=== PATIENT | female | born 1975 | race Caucasian/White ===

== ENCOUNTER 2018-06-25 05:56 | Observation (INO) | payer OTHER ==
--- NOTE | 2018-06-24 18:06 | Diagnostic Imaging Report ---
EXAMINATION: CHEST 2 VIEWS INDICATION: Pre admit. COMPARISON: None FINDINGS: Imaged flipped left to right. TUBES and LINES: None. LUNGS: Lungs are well inflated. Lungs are clear. There is no evidence of pneumonia or pulmonary edema. PLEURA: No pleural effusion or pneumothorax. HEART AND MEDIASTINUM: The cardiomediastinal silhouette is unremarkable. BONES AND SOFT TISSUES: No acute osseous lesion. Soft tissues are unremarkable. UPPER ABDOMEN: No free air under the diaphragm. IMPRESSION: No acute thoracic abnormality. Signed by: Dr. Ray Cordova M.D. on 06/24/2018 6:02 PM
[2018-06-24 18:40] LABS: BASOPHILS % 0.5 % (0.0-1.0); EOSINOPHILS # (AUTO) 0.3 (0.0-0.4); EOSINOPHILS % 3.4 % (0.0-6.0); HEMATOCRIT 38.4 % (34.2-44.1); HEMOGLOBIN 12.8 g/dL (12.0-16.0); LYMPHOCYTES # (AUTO) 2.3 (1.0-3.2); LYMPHOCYTES % 25.4 % (18.0-39.1); MEAN CORPUSCULAR HEMOGLOBIN 29.1 pg (28-32); MEAN CORPUSCULAR HGB CONC 33.3 g/dL (31-35); MEAN CORPUSCULAR VOLUME 87.3 fL (81-99); MONOCYTES # (AUTO) 0.5 (0.2-0.8); MONOCYTES % 5.6 % (4.4-11.3); NEUTROPHILS # (AUTO) 5.7 (2.1-6.9); NEUTROPHILS % 64.6 % (38.7-80.0); PLATELET COUNT 399 x10e3/uL (140-360); RED CELL DISTRIBUTION WIDTH 15.5 % (11.7-14.4)
[2018-06-24 18:43] LABS: BILIRUBIN,URINE NEGATIVE (NEGATIVE); CLARITY,URINE HAZY (CLEAR); COLOR,URINE YELLOW (YELLOW); KETONES,URINE NEGATIVE (NEGATIVE); LEUKOCYTE ESTERASE ,URINE 1+ (NEGATIVE); NITRITE,URINE NEGATIVE (NEGATIVE); PROTEIN,URINE DIPSTICK NEGATIVE (NEGATIVE); URINE UROBILINOGEN 0.2 mg/dL (0.2 - 1)
[2018-06-24 19:27] LABS: HIV 1&2 AB SCREEN NON-REACTIVE (NONREACTIVE)
[~2018-06-25] VITALS: Ht 160 cm; Wt 92.8 kg
[~2018-06-25 05:56] MED LIST: AMITRIPTYLINE H25 MG PO; DAILY VALUE1 EACH PO; DEXILANT60 MG PO; IRON PO; LISINOPRIL-HCT1 EACH PO; MAGNESIUM OXID400 MG PO; MELOXICAM7.5 MG PO; METOPROLOL SUCC50 MG PO; NASONEX17 GM; POTASSIUM PO; PRO AIR INH; SINGULAIR10 MG PO; SUMATRIPTAN SUC25 MG PO; SYMBICORT 80-10.2 GM INH; TIZANIDINE HCL4 MG PO; VALTREX500 MG PO; VIT D PO
--- OUTSIDE RECORDS SUMMARY | 2018-06-25 06:02 | XMS REPORT ---
Author Author Jodie Salinas Organization [employer] Address Unknown Phone Unavailable Care Team Providers Care Inhalation Therapy Aides Teacher Name Role Phone Jodie Salinas Unavailable Allergies, Adverse Reactions, Alerts Substance Reaction Event Type seasonal Info Not Available Non Drug Allergy fish Info Not Available Non Drug Allergy Encounters Encounter Location Date New patient here for blood pressure [facility] October 15, 2015 Problems Problem Type Condition ICD-9 Code Onset Dates Condition Status Assessment Anxiety F41.9 Active Problem Palpitations R00.2 Active Assessment Hypertension I10 Active Problem Anxiety F41.9 Active Problem Environmental allergies Z91.09 Active Problem Hypertension I10 Active Problem Asthma J45.909 Active Problem Tachycardia R00.0 Active Problem GERD (gastroesophageal reflux disease) K21.9 Active Problem Fatty liver K76.0 Active Assessment Asthma J45.909 Active Assessment Fatty liver K76.0 Active Assessment Palpitations R00.2 Active Assessment GERD (gastroesophageal reflux disease) K21.9 Active Assessment Tachycardia R00.0 Active Assessment Environmental allergies Z91.09 Active Medications Medication Code System Code Instructions Start Date End Date Status Dosage ProAir HFA [facility] [address]-48 108 (90 Base) MCG/ACT Inhalation every 4 hrs Active 2 puffs as needed Zomig [facility] [address]-07 Active Unknown Dyazide [facility] [address]-81 75 mg Orally Once a day Active 1 capsule in the morning Nexium [facility] [address]-30 40 MG Orally Once a day Active 1 capsule Paroxetine HCl [facility] [address]-34 10 mg Orally Once a day October 15, 2015 Active 1 tablet in the morning Singulair [facility] [address]-92 10 MG Orally Once a day Active 1 tablet in the evening Propranolol HCl [facility] [address]-52 10 mg Orally Twice a day October 15, 2015 Active 1 tablet Social History Social History Element Qualifiers Date Reported Tobacco Use: . Are you a: never smoker October 15, 2015 Use of recreational / street drugs? . Answer: No October 15, 2015 Do you have pets? . Status: No October 15, 2015 Caffeine intake? . Status: Yes, What type: Coffee, Tea, How often? Daily October 15, 2015 Do you exercise? . Answer: No October 15, 2015 Do you drink alcohol? . Status: Yes, Type: Wine, How often? Once per month October 15, 2015 Family history Qualifier Description Comment Date Reported Maternal Grandmother Comment not available October 15, 2015 Paternal Grandmother Comment not available October 15, 2015 Siblings Comment not available October 15, 2015 Maternal Grandfather Comment not available October 15, 2015 Children Comment not available October 15, 2015 Father alive cholesterol, dementia October 15, 2015 Paternal Grandfather Comment not available October 15, 2015 Mother Comment not available October 15, 2015 Other: Comment not available October 15, 2015 Vital Signs Date/Time: October 15, 2015 Weight 194.7 lbs Height 63 in Temperature 98.47 F Cardiac Monitoring Heart Rate 114 /min Blood Pressure Diastolic 96 mm Hg Blood Pressure Systolic 140 mm Hg Summary Purpose [employer] Submission
--- OUTSIDE RECORDS SUMMARY | 2018-06-25 06:02 | XMS REPORT ---
Author Author Jodie Salinas Organization [employer] Address Unknown Phone Unavailable Care Team Providers Care Health Safety And Environment Manager Name Role Phone Jodie Salinas Unavailable Encounters Encounter Location Date New patient here for blood pressure [facility] October 15, 2015 Patient here for a follow up [facility] Apr 24, 2016 std lab order [facility] May 26, 2016 Problems Problem Type Condition ICD-9 Code Onset Dates Condition Status Problem Palpitations R00.2 Active Problem Asthma J45.909 Active Problem Tachycardia R00.0 Active Assessment Concern about STD in female without diagnosis Z71.1 Active Problem Herpes labialis B00.1 Active Problem Hypertension I10 Active Problem Insomnia G47.00 Active Problem GERD (gastroesophageal reflux disease) K21.9 Active Problem Fatty liver K76.0 Active Problem Anxiety F41.9 Active Problem Environmental allergies Z91.09 Active Social History Social History Element Qualifiers Date Reported Tobacco Use: . Are you a: never smoker May 10, 2016 Use of recreational / street drugs? . Answer: No May 10, 2016 Do you have pets? . Status: No May 10, 2016 Caffeine intake? . Status: Yes, What type: Coffee, Tea, How often? Daily May 10, 2016 Do you exercise? . Answer: No May 10, 2016 Do you drink alcohol? . Status: Yes, Type: Wine, How often? Once per month May 10, 2016 Summary Purpose [employer] Submission
--- OUTSIDE RECORDS SUMMARY | 2018-06-25 06:02 | XMS REPORT ---
Author Author Jodie Salinas [facility] [employer] Address Unknown Phone Unavailable Care Team Providers Care Semiconductor Processing Technician Name Role Phone Jodie Salinas Unavailable Allergies, Adverse Reactions, Alerts Substance Reaction Event Type seasonal Info Not Available Non Drug Allergy fish Info Not Available Non Drug Allergy Encounters Encounter Location Date New patient here for blood pressure [facility] October 15, 2015 Patient here for a follow up [facility] Apr 24, 2016 Problems Problem Type Condition ICD-9 Code Onset Dates Condition Status Problem Palpitations R00.2 Active Problem Asthma J45.909 Active Problem Tachycardia R00.0 Active Problem Herpes labialis B00.1 Active Problem Hypertension I10 Active Problem Insomnia G47.00 Active Problem GERD (gastroesophageal reflux disease) K21.9 Active Problem Fatty liver K76.0 Active Problem Anxiety F41.9 Active Problem Environmental allergies Z91.09 Active Assessment Herpes labialis B00.1 Active Assessment Insomnia G47.00 Active Assessment GERD (gastroesophageal reflux disease) K21.9 Active Assessment Environmental allergies Z91.09 Active Assessment Asthma J45.909 Active Assessment Anxiety F41.9 Active Assessment Fatty liver K76.0 Active Assessment Hypertension I10 Active Medications Medication Code System Code Instructions Start Date End Date Status Dosage [facility] [address]-01 50 MCG/ACT Nasally Once a day Apr 24, 2016 Active 1 spray in each nostril Nexium [facility] [address]-98 40 MG Orally Once a day Active 1 capsule Valacyclovir HCl [facility] [address]-24 1 GM Orally twice a day (bid) Apr 24, 2016 May 04, 2016 Active 1 tablet HydrOXYzine HCl [facility] [address]-11 25 MG Orally once every night as needed Apr 24, 2016 Active 1 tablet as needed Advair Diskus [facility] [address]-47 250-50 MCG/DOSE Inhalation Twice a day Apr 24, 2016 Active 1 puff ProAir HFA [facility] [address]-93 108 (90 Base) MCG/ACT Inhalation every 4-6 hrs as needed Active 2 puffs as needed [facility] [address]-39 10 mg Orally Once a day Active 1 tablet in the evening Propranolol HCl [facility] [address]-02 10 mg Orally Twice a day October 15, 2015 Active 1 tablet Paroxetine HCl [facility] [address]-39 10 mg Orally Once a day October 15, 2015 Active 1 tablet in the morning Zomig [facility] [address]-77 Active Unknown Paroxetine HCl [facility] [address]-27 10 mg Orally Once a day Active 1 tablet in the morning Levocetirizine Dihydrochloride [facility] [address]-92 5 MG Orally Once a day Apr 24, 2016 Jun 23, 2016 Active 1 tablet in the evening Dyazide [facility] [address]-37 75 mg Orally Once a day Active 1 capsule in the morning Lisinopril-Hydrochlorothiazide [facility] [address]-67 10-12.5 MG Orally Once a day Apr 24, 2016 Active 1 tablet Social History Social History Element Qualifiers Date Reported Tobacco Use: . Are you a: never smoker Apr 24, 2016 Use of recreational / street drugs? . Answer: No Apr 24, 2016 Do you have pets? . Status: No Apr 24, 2016 Caffeine intake? . Status: Yes, What type: Coffee, Tea, How often? Daily Apr 24, 2016 Do you exercise? . Answer: No Apr 24, 2016 Do you drink alcohol? . Status: Yes, Type: Wine, How often? Once per month Apr 24, 2016 Vital Signs Date/Time: Apr 24, 2016 Weight 213.4 lbs Height 63 in Temperature 98.1 F Cardiac Monitoring Heart Rate 88 /min Blood Pressure Diastolic 78 mm Hg Blood Pressure Systolic 164 mm Hg Summary Purpose [employer]Works Submission
--- OUTSIDE RECORDS SUMMARY | 2018-06-25 06:02 | XMS REPORT | Clinical Summary ---
Author Author [facility] Address Unknown Phone Unavailable Care Team Providers Care Domestic Travel Consultant Name Role Phone Serene Perez MD PCP Allergies Comments Active Allergy Reactions Severity Noted Date White fish and cod fish, throat swelling Fish Containing Products Anaphylaxis High 02/12/2018 Most shellfish included. Shrimp Swelling Medium 02/12/2018 Medications End Date Status Medication Sig Dispensed Refills Start Date Active budesonide-formoterol Inhale 1 puff 0 (SYMBICORT) 160-4.5 as needed. mcg/actuation inhaler Active levocetirizine (XYZAL) 5 Take 1 tablet 0 MG tablet by mouth as needed. Active multivitamin with Take 1 tablet 0 minerals tablet by mouth daily. Active montelukast (SINGULAIR) TAKE 1 TABLET 90 tablet 0 10 mg tablet BY MOUTH 8 EVERY DAY Active valACYclovir (VALTREX) TAKE 1 TABLET 90 tablet 0 500 MG tablet BY MOUTH 8 EVERY DAY Active lisinopril-hydrochlorothi TAKE 1 TABLET 90 tablet 0 azide BY MOUTH 8 (PRINZIDE,ZESTORETIC) EVERY DAY 20-25 mg per tablet Active magnesium oxide 250 mg Take 1,000 mg 0 tablet by mouth daily. Active POTASSIUM BICARBONATE, Per her diet. 0 BULK, MISC Active ibuprofen (ADVIL,MOTRIN) Take 200 mg 0 200 MG tablet by mouth every 6 (six) hours as needed for mild pain. Active SUMAtriptan (IMITREX) 50 Take 1 tablet 9 tablet 3 201 MG tablet (50 mg total) 8 by mouth once as needed for migraine for up to 9 doses. Active dexlansoprazole Take 60 mg by 0 (DEXILANT) 60 mg capsule mouth daily. Active albuterol (PROAIR Inhale 2 0 HFA,PROVENTIL puffs every 6 HFA,VENTOLIN HFA) 90 (six) hours mcg/actuation inhaler as needed for wheezing. Active meloxicam (MOBIC) 15 mg Take 1 tablet 30 tablet 3 tabletIndications: by mouth 8 Intractable acute every morning post-traumatic headache, with food Cervicalgia Active tiZANidine (ZANAFLEX) 4 Take one half 60 tablet 3 MG tabletIndications: tablet by 8 Intractable acute mouth daily post-traumatic headache, at bedtime Cervicalgia for 3 days and then increase by one half tablet every 3 days up to 2 tablets daily at bedtime Active amitriptyline (ELAVIL) TAKE 1 TABLET 90 tablet 0 100 MG tablet (100 MG 8 TOTAL) BY MOUTH NIGHTLY NEEDED FOR SLEEP. 08/05/2018 Active metoprolol succinate XL Take 1 tablet 90 tablet 1 (TOPROL XL) 100 mg 24 hr (100 mg 8 tablet total) by mouth daily for 90 days. 08/22/2018 Active mometasone (NASONEX) 50 2 sprays into 51 g 0 mcg/actuation nasal spray each nostril 8 daily for 90 days. 09/05/2018 Active ferrous fumarate-folic Take 1 tablet 90 tablet 0 acid (HEMOCYTE-F) 324 mg by mouth 8 (106 mg iron)-1 mg tablet daily for 90 per tablet days. 11/29/2017 Discontinued PROAIR HFA 90 Inhale 2 0 mcg/actuation inhaler puffs every 4 8 (four) hours as needed. 11/29/2017 Discontinued amitriptyline (ELAVIL) Take 100 mg 0 100 MG tablet by mouth nightly as needed. 04/17/2018 Discontinued beclomethasone 2 sprays into 0 dipropionate (QNASL NASL) each nostril as needed. 11/29/2017 Discontinued lisinopril-hydrochlorothi Take 1 tablet 0 azide by mouth 6 (PRINZIDE,ZESTORETIC) daily. 20-25 mg per tablet 11/29/2017 Discontinued metoprolol tartrate Take 50 mg by 0 (LOPRESSOR) 50 mg tablet mouth 6 nightly. 11/29/2017 Discontinued montelukast (SINGULAIR) Take 1 tablet 0 10 mg tablet by mouth daily. 03/29/2018 Discontinued rosuvastatin (CRESTOR) 5 Take 5 mg by 0 MG tablet mouth nightly. 11/29/2017 Discontinued valACYclovir (VALTREX) Take 500 mg 0 500 MG tablet by mouth daily. 11/29/2017 Discontinued SUMAtriptan (IMITREX) 50 Take 50 mg by 0 MG tablet mouth once as needed for migraine. May repeat in 2 hours if unresolved. Do not exceed 200 mg in 24 hours. 03/01/2018 Discontinued lisinopril-hydrochlorothi Take 1 tablet 90 tablet 0 azide by mouth 8 (PRINZIDE,ZESTORETIC) daily for 90 20-25 mg per tablet days. 03/01/2018 Discontinued valACYclovir (VALTREX) Take 1 tablet 90 tablet 0 500 MG tablet (500 mg 8 total) by mouth daily for 90 days. 03/01/2018 Discontinued metoprolol tartrate Take 1 tablet 90 tablet 0 (LOPRESSOR) 50 mg tablet (50 mg total) 8 by mouth nightly for 90 days. 03/01/2018 Discontinued montelukast (SINGULAIR) Take 1 tablet 9030 tablet 0 10 mg tablet (10 mg total) 8 by mouth daily for 90 days. 12/29/2017 PROAIR HFA 90 Inhale 2 18 g 1 mcg/actuation inhaler puffs every 4 8 (four) hours as needed for wheezing for up to 30 days. 12/29/2017 SUMAtriptan (IMITREX) 50 Take 1 tablet 9 tablet 3 MG tablet (50 mg total) 8 by mouth once as needed for migraine for up to 30 days. 04/18/2018 Discontinued amitriptyline (ELAVIL) Take 1 tablet 90 tablet 0 100 MG tablet (100 mg 8 total) by mouth nightly as needed for sleep. 12/14/2017 fluocinolone acetonide Administer 5 20 mL 1 oil 0.01 % drops drops into 8 ears 2 (two) times a day for 14 days. 02/22/2018 ergocalciferol (VITAMIN Take 1 12 capsule 0 D2) 50,000 unit capsule capsule 8 (50,000 Units total) by mouth once a week for 84 days. 12/28/2017 dexamethasone (DECADRON) Administer 1 5 mL 1 0.1 % ophthalmic drop to both 8 suspension eyes 2 (two) times a day for 14 days. 03/13/2018 Discontinued metoprolol tartrate TAKE 1 TABLET 90 tablet 0 (LOPRESSOR) 50 mg tablet (50 MG TOTAL) 8 BY MOUTH NIGHTLY FOR 90 DAYS. 06/06/2018 Discontinued ferrous fumarate-folic Take 1 tablet 90 tablet 1 acid (HEMOCYTE-F) 324 mg by mouth 8 (106 mg iron)-1 mg tablet daily for 90 per tablet days. 04/12/2018 metoprolol succinate XL Take 1 tablet 30 tablet 1 (TOPROL-XL) 100 mg 24 hr (100 mg 8 tablet total) by mouth daily for 30 days. 03/18/2018 ondansetron ODT Take 1 tablet 15 tablet 0 (ZOFRAN-ODT) 4 MG (4 mg total) 8 disintegrating tablet by mouth every 8 (eight) hours as needed for nausea or vomiting for up to 5 days. 03/29/2018 amoxicillin-pot Take 1 tablet 20 tablet 0 clavulanate (AUGMENTIN) by mouth 2 8 875-125 mg per tablet (two) times a day for 10 days. 05/02/2018 clonAZEPAM (KlonoPIN) 0.5 Take 1 tablet 40 tablet 0 MG tablet (0.5 mg 8 total) by mouth 2 (two) times a day as needed for anxiety for up to 20 days. 04/22/2018 Discontinued beclomethasone 1 spray into 8.7 g 3 dipropionate (QNASL) 80 each nostril 8 mcg/actuation HFA aerosol daily for 30 inhaler days. 05/20/2018 mometasone (NASONEX) 50 2 sprays into 17 g 2 mcg/actuation nasal spray each nostril 8 daily for 28 days. Active Problems Problem Noted Date Intractable acute post-traumatic headache 03/29/2018 Chronic migraine without aura, not intractable, without status migrainosus 03/29/2018 Chronic tension-type headache, not intractable 03/29/2018 Cervicalgia 03/29/2018 Temporomandibular joint syndrome 03/29/2018 Chronic insomnia 03/29/2018 Acute midline thoracic back pain 02/12/2018 Acute right-sided low back pain without sciatica 02/12/2018 Encounters Care Team Description Date Type Specialty Nenita Wolfe MD 06/21/2018 Telephone Neurology Demetrius Davis MA 06/06/2018 Refill Internal Medicine Serene Perez MD 05/24/2018 Orders Only Internal Medicine Demetrius Davis MA 05/24/2018 Telephone Internal Medicine Sasha Woodall MA 05/07/2018 Refill Internal Medicine Sasha Woodall MA Breast disorder 04/25/2018 Orders Only Internal Medicine Serene Perez MD 04/22/2018 Orders Only Internal Medicine Serene Perez MD 04/18/2018 Refill Internal Medicine Serene Perez MD 04/17/2018 Orders Only Internal Medicine Serene Perez MD 04/12/2018 Orders Only Internal Medicine Serene Perez MD Breast disorder (Primary Dx) 04/09/2018 Orders Only Internal Medicine Sasha Woodall MA Encounter for screening mammogram for malignant neoplasm of breast 04/09/2018 Orders Only Internal Medicine Serene Perez MD Burnett, Leanne, MD Intractable acute post-traumatic headache (Primary Dx); Chronic migraine without aura, not intractable, without status migrainosus; Chronic tension-type headache, not intractable; Cervicalgia; Temporomandibular joint syndrome; MRI of brain abnormal; Chronic insomnia 03/29/2018 Office Visit Neurology Serene Perez MD Abnormal MRI (Primary Dx); Vasculitis 03/24/2018 Orders Only Internal Medicine Serene Perez MD MRI of brain abnormal (Primary Dx) 03/24/2018 Orders Only Internal Medicine Sasha Woodall MA Acute post-traumatic headache, not intractable 03/22/2018 Orders Only Internal Medicine Serene Perez MD Acute post-traumatic headache, not intractable (Primary Dx) 03/20/2018 Orders Only Internal Medicine Sasha Woodall MA 03/20/2018 Telephone Internal Medicine Serene Perez MD Neck pain (Primary Dx) 03/20/2018 Orders Only Internal Medicine Serene Perez MD Neck pain (Primary Dx) 03/19/2018 Orders Only Internal Medicine Serene Perez MD 03/19/2018 Orders Only Internal Medicine Sasha Woodall MA New daily persistent headache 03/19/2018 Orders Only Internal Medicine Serene Perez MD New daily persistent headache (Primary Dx); Encounter for screening mammogram for malignant neoplasm of breast; Menorrhagia with regular cycle; Mixed hyperlipidemia; Vitamin D deficiency 03/13/2018 Office Visit Internal Medicine Serene Perez MD 03/01/2018 Refill Internal Medicine Serene Perez MD 02/23/2018 Refill Internal Medicine Perez Leyva III, MD Acute right-sided low back pain without sciatica (Primary Dx); Acute midline thoracic back pain 02/12/2018 Office Visit Orthopedic Surgery Serene Perez MD 12/14/2017 Orders Only Internal Medicine Serene Perez MD 11/30/2017 Orders Only Internal Medicine Serene Perez MD 11/30/2017 Orders Only Internal Medicine Serene Perez MD Essential hypertension (Primary Dx); Mixed hyperlipidemia; Encounter for routine adult health examination with abnormal findings; Menorrhagia with irregular cycle; Subclinical hypothyroidism; Encounter for screening mammogram for breast cancer; Papanicolaou smear for cervical cancer screening 11/29/2017 Office Visit Internal Medicine after 06/24/2017 Family History Medical History Relation Name Comments Arthritis Father García Cancer Father García Hearing loss Father García Heart disease Father García Hyperlipidemia Father García Hypertension Father García Kidney disease Father García Prostate cancer Father García Skin, Prostate Stroke Father García Vision loss Father García Asthma Maternal Jolie Susie Grandfather Arthritis Maternal Jolie Grandmother Arthritis Mother Jolie COPD Mother Jolie Cancer Mother Jolie Colon cancer Mother Jolie Diabetes Mother Jolie Hearing loss Mother Jolie Heart disease Mother Jolie Hyperlipidemia Mother Jolie Hypertension Mother Jolie Ovarian cancer Mother Jolie Ovarian, Peritoneal, Colon Vision loss Mother Jolie Hypertension Sister Stefanie Migraines Sister Stefanie Relation Name Status Comments Father García Alive Maternal Grandfather Jolie Susie Maternal Grandmother Jolie Mother Jolie Sister Stefanie Social History Date Tobacco Use Types Packs/Day Years Used Never Smoker Smokeless Tobacco: Never Used Alcohol Use Drinks/Week oz/Week Comments Yes 0 Cans of 1.2 beer 0 Shots of liquor 2 Standard drinks or equivalent Sex Assigned at Date Recorded Not on file Industry Job Start Date Occupation Not on file Not on file Not on file Travel End Travel History Travel Start No recent travel history available. Last Filed Vital Signs Time Taken Vital Sign Reading 03/29/2018 3:29 PM CDT Blood Pressure 106/71 03/29/2018 3:29 PM CDT Pulse 106 03/13/2018 10:48 AM CDT Temperature 37.3 C (99.1 F) 03/13/2018 10:48 AM CDT Respiratory Rate 16 03/13/2018 10:48 AM CDT Oxygen Saturation 98% - Inhaled Oxygen - Concentration 03/29/2018 3:29 PM CDT Weight 87.5 kg (193 lb) 03/29/2018 3:29 PM CDT Height 160 cm (5' 3") 03/29/2018 3:29 PM CDT Body Mass Index 34.19 Plan of Treatment Care Team Description Date Type Specialty Nenita Wolfe MD [address] [facility] [address] [place] [id number] [phone] 10/02/2018 Office Visit Neurology Health Maintenance Due Date Last Done Comments CERVICAL CANCER SCREENING 1998 INFLUENZA VACCINE Completed 05/28/2018 HEPATITIS B VACCINES Aged Out No longer eligible based on patient's age to complete this topic IPV VACCINES Aged Out No longer eligible based on patient's age to complete this topic MENINGOCOCCAL VACCINE Aged Out No longer eligible based on patient's age to complete this topic Procedures Comments Procedure Name Priority Date/Time Associated Diagnosis MAMMO DIAGNOSTIC W CAD Routine 04/25/2018 Breast disorder LEFT 1:41 PM CDT C4 COMPLEMENT COMPONENT Routine 04/10/2018 Abnormal MRI 12:47 PM CDT Vasculitis C3 COMPLEMENT COMPONENT Routine 04/10/2018 Abnormal MRI 12:47 PM CDT Vasculitis C-REACTIVE PROTEIN Routine 04/10/2018 Abnormal MRI 12:47 PM CDT Vasculitis SEDIMENTATION RATE Routine 04/10/2018 Abnormal MRI 12:47 PM CDT Vasculitis MICHELLE CASCADING REFLEX Routine 04/10/2018 Abnormal MRI 12:47 PM CDT Vasculitis MAMMO SCREENING W CAD Routine 04/09/2018 Encounter for screening BILATERAL 4:05 PM CDT mammogram for malignant neoplasm of breast MRI BRAIN WO CONTRAST Routine 03/22/2018 Acute post-traumatic 3:49 PM CDT headache, not intractable CT HEAD WO CONTRAST Routine 03/19/2018 New daily persistent 9:09 AM CDT headache XR THORACIC SPINE 2 VW Routine 02/12/2018 Acute midline thoracic 10:55 AM CDT back pain XR LUMBAR SPINE COMPLETE Routine 02/12/2018 Acute right-sided low 4+ VW 10:50 AM CDT back pain without sciatica T4, FREE Routine 11/29/2017 12:18 PM CDT FERRITIN LEVEL Routine 11/29/2017 Menorrhagia with 12:18 PM CDT irregular cycle TOTAL IRON BINDING Routine 11/29/2017 Menorrhagia with CAPACITY 12:18 PM CDT irregular cycle THYROID STIMULATING Routine 11/29/2017 Encounter for routine HORMONE 12:18 PM CDT adult health examination with abnormal findings VITAMIN D 25 HYDROXY Routine 11/29/2017 Encounter for routine LEVEL 12:18 PM CDT adult health examination with abnormal findings LIPID PANEL Routine 11/29/2017 Mixed hyperlipidemia 12:18 PM CDT HEMOGLOBIN A1C Routine 11/29/2017 Encounter for routine 12:18 PM CDT adult health examination with abnormal findings COMPREHENSIVE METABOLIC Routine 11/29/2017 Mixed hyperlipidemia PANEL 12:18 PM CDT CBC WITH PLATELET AND Routine 11/29/2017 Essential hypertension DIFFERENTIAL 12:18 PM CDT MICROALBUMIN / CREATININE Routine 11/29/2017 Essential hypertension URINE RATIO 12:18 PM CDT after 06/24/2017 Results * Mammo Diagnostic w Cad Left (04/25/2018 1:41 PM CDT) Narrative Performed At Performing Organization Address City/State/[facility] Phone Number EXTERNAL LAB NON-INTERFACED * MICHELLE CASCADING REFLEX (04/10/2018 12:47 PM CDT) MICHELLE screen NEGATIVE NEGATIVE [facility] Comment: [facility] A negative MICHELLE Multiplex, with II Reflex to 11 Antibody Ida indicates the absence of detectable antibodies to component analytes consisting of double stranded DNA (dsDNA), chromatin, ribonucleoprotein (ANIMAL HUSBANDRY TEACHER), Reynoso/ANIMAL HUSBANDRY TEACHER (Sm/ANIMAL HUSBANDRY TEACHER), Reynoso (Sm), SS-A, SS-B, Dianne-1, centromere B, Scl-70 and ribosomal P. A negative result should be interpreted in the context of the clinical and laboratory findings and does not rule out autoimmune disease characterized by other autoantibody specificities such as rheumatoid arthritis, autoimmune hepatitis, primary biliary cirrhosis, autoimmune thyroiditis, Gasper's disease, pernicious anemia, autoimmune neuropathies, vasculitis, celiac disease, and bullous disease. Visit Physician FAQs for interpretation of all antibodies in the Ida, prevalence, and association with diseases at [email or web address] Specimen Blood Narrative Performed At FASTING:NO [facility] FASTING: NO Resulting Agency Comment Performing Organization Information: Site ID: [id number] Name: [facility] Address: [address] [place] [id number] Director: Dr. Leon Swanson Performing Organization Address [facility] Mexic[facility]ode Phone Number pickrset[address] [address] II * Sedimentation rate (04/10/2018 12:47 PM CDT) Sedimentation rate 17 < OR=20 mm/h [place] [place] Specimen Blood Narrative Performed At FASTING:NO [facility] FASTING: NO Resulting Agency Comment Performing Organization Information: Site ID: [id number] Name: [facility] Address: [address] [place] [phone] Director: Leny Pulido Performing Organization Address [facility]/Zipcode Phone Number pickrset [address] [address] * C3 complement component (04/10/2018 12:47 PM CDT) C3 complement 156 83 - 193 mg/dL [place] [place] Specimen Blood Narrative Performed At FASTING:NO [facility] FASTING: NO Resulting Agency Comment Performing Organization Information: Site ID: [id number] Name: [facility] Address: [address] [place] [address] Director: Leny Pulido Performing Organization Address [facility] [place] [address] * C4 complement component (04/10/2018 12:47 PM CDT) C4 complement 42 15 - 57 mg/dL [facility] [email or web address] [place] Specimen Blood Narrative Performed At FASTING:NO [facility] FASTING: NO Resulting Agency Comment Performing Organization Information: Site ID: [id number] Name: [facility] Address: [address] [place], [place] [address] Director: Leny Pulido Performing Organization Address [facility] [place] [address] * C-reactive protein (04/10/2018 12:47 PM CDT) CRP 19.0 (H) <8.0 mg/L [place] Specimen Blood Narrative Performed At FASTING:NO [facility] FASTING: NO Resulting Agency Comment Performing Organization Information: Site ID: [id number] Name: [facility] Address: [address] [place], [place] [id number] Director: Leny Pulido Performing Organization Address [facility] [place] [address] * Mammo Screening w Cad Bilateral (04/09/2018 4:05 PM CDT) Narrative Performed At Performing Organization Address [facility] Phone Number EXTERNAL LAB NON-INTERFACED * MRI Brain Wo Contrast (03/22/2018 3:49 PM CDT) Narrative Performed At Performing Organization Address [facility] Phone Number EXTERNAL LAB NON-INTERFACED * CT Head Wo Contrast (03/19/2018 9:09 AM CDT) Narrative Performed At Performing Organization Address City/[facility] Phone Number EXTERNAL LAB NON-INTERFACED * XR Thoracic Spine 2 Vw (02/12/2018 10:55 AM CDT) Narrative Performed At [facility] AP and lateral thoracic spine: Normal exam.No fractures. Performing Organization Address [facility]ofl Phone Number [facility] [address] [place] [address] * XR Lumbar Spine Complete 4+ Vw (02/12/2018 10:50 AM CDT) Narrative Performed At [facility] Lumbar spine series with flexion-extension.No obvious fractures. Transitional L5 sacral segment. Performing Organization Address [facility] Phone Number [facility] [address] [place] [address] * Total iron binding capacity (11/29/2017 12:18 PM CDT) Iron binding capacity 471 (H) 250 - 450 ug/dL [facility] Unsaturated iron binding 440 (H) 131 - 425 ug/dL [facility] capacity Iron level 31 27 - 159 ug/dL [facility] Iron saturation 7 (LL) 15 - 55 % [facility] Specimen Blood Narrative Performed At Performed at: [facility] [address] [place], [id number] Granite Fabricator: Gage Howard MD, Phone:[phone] Performing Organization Address [facility] Phone Number [facility] * Microalbumin / creatinine urine ratio (11/29/2017 12:18 PM CDT) Creatinine, urine, random 95.8 Not Estab. mg/dL [facility] Microalbumin, urine 7.0 Not Estab. ug/mL [facility] Microalbumin/creatinine 7.3 0.0 - 30.0 mg/g creat [facility] ratio Specimen Urine Narrative Performed At Performed at: [facility] [place], [id number] Granite Fabricator: Gage Howard MD, Phone:[phone] Performing Organization Address [facility] Mexico[facility]rof[facility] Phone Number [facility] * Vitamin D 25 hydroxy level (11/29/2017 12:18 PM CDT) Vitamin D, 25-hydroxy 17.2 (L) 30.0 - 100.0 ng/mL [facility] Comment: Vitamin D deficiency has been defined by the [place] of Medicine and an Endocrine Society practice guideline as a level of serum 25-OH vitamin D less than 20 ng/mL (1,2). The Endocrine Society went on to further define vitamin D insufficiency as a level between 21 and 29 ng/mL (2). 1. IOM ([place] of Medicine). 2010. Dietary reference intakes for calcium and D. [place]: The National Academies Press. 2. Silvana MF, Eduardo CHAHAL, Abbie MENDEZ, et al. Evaluation, treatment, and prevention of vitamin D deficiency: an Endocrine Society clinical practice guideline. JCEM. 2010; 96(7):1911-30. Specimen Blood Narrative Performed At Performed at:01 - [facility] [address] [place], [id number] Granite Fabricator: Gage Howard MD, Phone:[phone] Performing Organization Address City/State/Zipcode Phone Number [facility] * CBC with platelet and differential (11/29/2017 12:18 PM CDT) WBC 7.9 3.4 - 10.8 x10E3/uL [facility] RBC 4.07 3.77 - 5.28 x10E6/uL [facility] HGB 11.2 11.1 - 15.9 g/dL [facility] HCT 34.4 34.0 - 46.6 % [facility] MCV 85 79 - 97 fL [facility] MCH 27.5 26.6 - 33.0 pg [facility] MCHC 32.6 31.5 - 35.7 g/dL [facility] RDW 17.0 (H) 12.3 - 15.4 % [facility] Platelet count 371 150 - 379 x10E3/uL [facility] Neutrophils 60 Not Estab. % [facility] Lymphocytes 29 Not Estab. % [facility] Monocytes 5 Not Estab. % [facility] Eosinophils 5 Not Estab. % [facility] Basophils 1 Not Estab. % [facility] Neutrophils, absolute 4.7 1.4 - 7.0 x10E3/uL [facility] Lymphocytes, absolute 2.3 0.7 - 3.1 x10E3/uL [facility] Monocytes, absolute 0.4 0.1 - 0.9 x10E3/uL [facility] Eosinophils, absolute 0.4 0.0 - 0.4 x10E3/uL [facility] Basophils, absolute 0.0 0.0 - 0.2 x10E3/uL [facility] Immature granulocytes 0 Not Estab. % [facility] Immature grans (abs) 0.0 0.0 - 0.1 x10E3/uL [facility] Specimen Blood Narrative Performed At Performed at:[address] [place], [place] [id number] Granite Fabricator: Gage Howard MD, Phone:[phone] Performing Organization Address [facility] Phone Number [facility] * Thyroid stimulating hormone (11/29/2017 12:18 PM CDT) TSH 3.650 0.450 - 4.500 uIU/mL [facility] Specimen Blood Narrative Performed At Performed at:[address] [place], [place] [id number] Granite Fabricator: Gage Howard MD, Phone:[phone] Performing Organization Address [facility] Phone Number [facility] * T4, free (11/29/2017 12:18 PM CDT) T4, free 1.09 0.82 - 1.77 ng/dL [facility] Narrative Performed At Performed at:[address] [place], [place] [id number] Granite Fabricator: Gage Howard MD, Phone:[phone] Performing Organization Address [facility] Phone Number [facility] * Hemoglobin A1c (11/29/2017 12:18 PM CDT) Hemoglobin A1C 5.6 4.8 - 5.6 % [facility] Comment: Pre-diabetes: 5.7 - 6.4 Diabetes: >6.4 Glycemic control for adults with diabetes: <7.0 Specimen Blood Narrative Performed At Performed at:[address] [place], [place] [id number] Granite Fabricator: Gage Howard MD, Phone:[phone] Performing Organization Address [facility] Phone Number [facility] * Ferritin level (11/29/2017 12:18 PM CDT) Ferritin level 9 (L) 15 - 150 ng/mL [facility] Specimen Blood Narrative Performed At Performed at:01 - [facility] [place], [id number] Granite Fabricator: Gage Howard MD, Phone:[phone] Performing Organization Address [facility] Phone Number [facility] * Lipid panel (11/29/2017 12:18 PM CDT) Cholesterol 199 100 - 199 mg/dL [facility] Triglycerides 312 (H) 0 - 149 mg/dL [facility] HDL cholesterol 38 (L) >39 mg/dL [facility] VLDL cholesterol halina 62 (H) 5 - 40 mg/dL [facility] LDL cholesterol 99 0 - 99 mg/dL [facility] calculated Non-HDL cholesterol 161 (H) 0 - 129 mg/dL [facility] Specimen Blood Narrative Performed At Performed at:01 - [id number] Granite Fabricator: Gage Howard MD, Phone:[phone] Performing Organization Address [facility] Phone Number [facility] * Comprehensive metabolic panel (11/29/2017 12:18 PM CDT) Glucose 90 65 - 99 mg/dL [facility] BUN, whole blood 11 6 - 24 mg/dL [facility] Creatinine 0.57 0.57 - 1.00 mg/dL [facility] EGFR Non-Afr. Bruneian 116 >59 mL/min/1.73 [facility] EGFR 134 >59 mL/min/1.73 [facility] BUN/creatinine ratio 19 9 - 23 [facility] Sodium 139 134 - 144 mmol/L [facility] Potassium 4.2 3.5 - 5.2 mmol/L [facility] Chloride 100 96 - 106 mmol/L [facility] CO2 23 18 - 29 mmol/L [facility] Calcium 8.9 8.7 - 10.2 mg/dL [facility] Protein 6.7 6.0 - 8.5 g/dL [facility] Albumin, S 4.2 3.5 - 5.5 g/dL [facility] Globulin, total 2.5 1.5 - 4.5 g/dL [facility] Albumin/globulin ratio 1.7 1.2 - 2.2 [facility] Total bilirubin <0.2 0.0 - 1.2 mg/dL [facility] Alkaline phosphatase 62 39 - 117 IU/L [facility] AST 18 0 - 40 IU/L [facility] ALT 21 0 - 32 IU/L [facility] Specimen Blood Narrative Performed At Performed at: - [facility] [address] [facility], [id number] Granite Fabricator: Gage Howard MD, Phone:[phone] Performing Organization Address City/State/Zipcode Phone Number [facility] after 06/24/2017 Insurance Payer Benefit Subscriber ID Type Phone Address Plan / Group [facility] xxxxxxxxx HMO/PPO THCARE CHOICE/CHO ICE + Advance Directives Patient has advance care planning documents on file. For more information, shasta peguero contact: Forest Dixon [address] [place] [address]
--- OUTSIDE RECORDS SUMMARY | 2018-06-25 06:02 | XMS REPORT | Continuity of Care Document ---
Author Author [facility] Interface Address Unknown Phone Unavailable Problems Problem Status Onset Date Classification Date Reported Comments Source Palpitations Active Problem 05/27/2016 [facility] Asthma Active Problem 05/27/2016 [facility] Tachycardia Active Problem 05/27/2016 [facility] Concern about STD in female without diagnosis Active Diagnosis 05/27/2016 [facility] Herpes labialis Active Problem 05/27/2016 [facility] Hypertension Active Problem 05/27/2016 [facility] Insomnia Active Problem 05/27/2016 [facility] GERD Active Problem 05/27/2016 [facility] Fatty liver Active Problem 05/27/2016 [facility] Anxiety Active Problem 05/27/2016 [facility] Environmental allergies Active Problem 05/27/2016 [facility] Medications Medication Details Route Status Patient Instructions Ordering Provider Order Date Source Fluticasone Propionate 1 spray in each nostril Nasally Active 50 MCG/ACT Nasally Once a day Brad 04/24/2016 [facility] Valacyclovir HCl 1 tablet Orally Active 1 GM Orally twice a day (bid) Brad04/24/2016 [facility] HydrOXYzine HCl 1 tablet as needed Orally Active 25 MG Orally once every night as needed Brad 04/24/2016 [facility] Advair Diskus 1 puff Inhalation Active 250-50 MCG/DOSE Inhalation Twice a day Brad 04/24/2016 [facility] Levocetirizine Dihydrochloride 1 tablet in the evening Orally Active 5 MG Orally Once a day Brad 04/24/2016 [facility] Lisinopril-Hydrochlorothiazide 1 tablet Orally Active 10-12.5 MG Orally Once a day Brad04/24/2016 [facility] Paroxetine HCl 1 tablet in the morning Orally Active 10 mg Orally Once a day Brad 10/15/2015 [facility] Propranolol HCl 1 tablet Orally Active 10 mg Orally Twice a day Brad 10/15/2015 [facility] ProAir HFA 2 puffs as needed Inhalation Active 108 (90 Base) MCG/ACT Inhalation every 4-6 hrs as needed [facility] Zomig Unknown NA Active [facility] Dyazide 1 capsule in the morning Orally Active 75 mg Orally Once a day [facility] Nexium 1 capsule Orally Active 40 MG Orally Once a day [facility] Singulair 1 tablet in the evening Orally Active 10 mg Orally Once a day [facility] Paroxetine HCl 1 tablet in the morning Orally Active 10 mg Orally Once a day [facility] Allergies, Adverse Reactions, Alerts Substance Category Reaction Severity Reaction type Status Date Reported Comments Source seasonal Adverse Reaction Info Not Available Adverse Reaction Active 04/24/2016 [facility] fish Adverse Reaction Info Not Available Adverse Reaction Active 04/24/2016 [facility] Immunizations Immunization Date Given Site Status Last Updated Comments Source Results Order Name Results Value Reference Range Date Interpretation Comments Source Vital Signs Vital Sign Value Date Comments Source Weight 213.4 04/24/2016 [facility] Height 63 04/24/2016 [facility] Temperature Oral (F) 98.1 F 04/24/2016 [facility] Heart Rate 88 04/24/2016 [facility] Diastolic (mm Hg) 78 04/24/2016 [facility] Systolic (mm Hg) 164 04/24/2016 [facility] Weight 194.7 10/15/2015 [facility] Height 63 10/15/2015 [facility] Temperature Oral (F) 98.47 F 10/15/2015 [facility] Heart Rate 114 10/15/2015 [facility] Diastolic (mm Hg) 96 10/15/2015 [facility] Systolic (mm Hg) 140 10/15/2015 [facility] Encounters Location Location Details Encounter Type Encounter Number Reason For Visit Attending Provider ADM Date DC Date Status Source [facility] New patient here for blood pressure [id number] 10/15/2015 10/15/2015 [facility] New patient here for blood pressure [id number] 10/15/2015 10/15/2015 [facility] New patient here for blood pressure [id number] 10/15/2015 10/15/2015 [facility] Patient here for a follow up [id number] 04/24/2016 04/24/2016 [facility] Patient here for a follow up [id number] 04/24/2016 04/24/2016 [facility] std lab order [id number] 05/26/2016 05/26/2016 [facility] Procedures Procedure Code Date Perfomer Comments Source
--- OUTSIDE RECORDS SUMMARY | 2018-06-25 06:02 | XMS REPORT ---
Author Author [facility] Address Unknown Phone Unavailable Care Team Providers Care Media Director Name Role Phone Radha ROBLERO Unavailable Unavailable Problems This patient has no known problems. Allergies, Adverse Reactions, Alerts This patient has no known allergies or adverse reactions. Medications This patient has no known medications. Results Test Description Test Time Test Comments Text Results Atomic Results Result Comments CHEST 2 VIEWS 2018-06-24 18:01:00 [place] [address] Patient Name: SHRUTI LERNER MR #: [id number] : 1975 Age/Sex: 43/F Req #: [id number] Adm Physician: Ordered by: DANNIE ROBLERO MD Report #: [id number] Location: OR Room/Bed: Procedure: [id number] DX/CHEST 2 VIEWS Exam Date: 06/24/18 Exam Time: 1740 REPORT STATUS: Signed EXAMINATION: CHEST 2 VIEWS INDICATION: Pre admit. COMPARISON: None FINDINGS: Imaged flipped left to right. TUBES and LINES: None. LUNGS: Lungs are well inflated. Lungs are clear. There is no evidence of pneumonia or pulmonary edema. PLEURA: No pleural effusion or pneumothorax. HEART AND MEDIASTINUM: The cardiomediastinal silhouette is unremarkable. BONES AND SOFT TISSUES: No acute osseous lesion. Soft tissues are unremarkable. UPPER ABDOMEN: No free air under the diaphragm. IMPRESSION: No acute thoracic abnormality. Signed by: Dr. Ray Negro M.D. on 06/24/2018 6:02 PM Dictated By: ANANTH NEGRO MD, MD 01 Transcribed By: JAYDE on 06/24/181801 COPY TO: DANNIE ROBLERO MD
[2018-06-25] MEDS ORDERED: CEFOXITIN SOD 1 GM VIAL ONE (07:30)
[2018-06-25] MEDS ORDERED: BUPIVACAINE LIPOSOME/PF 266 MG/20 ML IJ ONE (07:48)
[2018-06-25] MEDS: ONDANSETRON HCL INJ 2 MG/ML VIAL IV PRN ×2 (10:11→18:11)
[2018-06-25] MEDS ORDERED: DIPHENHYDRAMINE HCL INJ 50 MG/ML VIAL IM PRN (10:15)
[2018-06-25] MEDS ORDERED: KETOROLAC TROMETHAMINE 30 MG/ML VIAL IV PRN (10:15)
[2018-06-25] MEDS ORDERED: NALOXONE HCL INJ 0.4 MG/ML AMP IV PRN (10:15)
[2018-06-25] MEDS ORDERED: ACETAMINOPHEN 1000 MG/100 ML IV PRN (10:15)
[2018-06-25] MEDS: HYDROMORPHONE 0.2MG/ML-SOD CHL 30ML PCA SYRINGE IV PRN (10:19)
[2018-06-25] MEDS ORDERED: METOCLOPRAMIDE HCL 10 MG/2ML VIAL ONE (10:23)
--- OUTSIDE RECORDS SUMMARY | 2018-06-25 10:30 | XMS REPORT | Clinical Summary ---
Author Author [facility] Address Unknown Phone Unavailable Care Team Providers Care Md Allergy Immunology Name Role Phone Serene Perez MD PCP [...] Date Type Specialty Nenita Wolfe MD [address] [facility] [address] [place] [address] [phone] 10/02/2018 Office Visit Neurology Health Maintenance Due [...] CDT) Narrative Performed At Performing Organization Address City/State/[facility] Phone Number EXTERNAL LAB NON-INTERFACED * MICHELLE CASCADING REFLEX (04/10/2018 12:47 PM CDT) MICHELLE screen NEGATIVE NEGATIVE [facility] Comment: [facility] A negative MICHELLE Multiplex, with II Reflex to 11 Antibody [place] indicates the absence of detectable antibodies to component analytes consisting of double stranded DNA (dsDNA), chromatin, ribonucleoprotein (METAL MOCKUP MAKER), Reynoso/METAL MOCKUP MAKER (Sm/METAL MOCKUP MAKER), [place] (Sm), SS-A, SS-B, Dianne-1, centromere B, [...] for interpretation of all antibodies in the [place], prevalence, and association with diseases at http://education.Telerikcom/ faq/QTL101 Specimen Blood Narrative Performed At FASTING:NO QUEST FASTING: NO Resulting Agency Comment Performing Organization Information: Site ID: [id number] Name: [facility] Address: [address] [place] [id number] Director: Dr. Leon Swanson Performing Organization Address [facility] Phone Number [employer] [address] [address] II * Sedimentation rate (04/10/2018 12:47 PM CDT) Sedimentation rate 17 < OR=20 mm/h [employer] [place] Specimen Blood Narrative Performed At FASTING:NO QUEST FASTING: NO Resulting Agency Comment Performing Organization Information: Site ID: RGA Name: [facility] Address: [address] [place] [id number] Director: Leny Pulido Performing Organization Address [facility]/Zipcode Phone Number [employer] [address] [address] * C3 complement component (04/10/2018 12:47 PM CDT) C3 complement 156 83 - 193 mg/dL [employer] [place] Specimen Blood Narrative Performed At FASTING:NO QUEST FASTING: NO Resulting Agency Comment Performing Organization Information: Site ID: GUSTABO Name: [facility] Address: [address] [place] [address] Director: Leny Pulido Performing Organization Address [facility] Phone [place] [address] * C4 complement component (04/10/2018 12:47 PM CDT) C4 complement 42 15 - 57 mg/dL [facility] [employer] [place] Specimen Blood Narrative Performed At FASTING:NO QUEST FASTING: NO Resulting Agency Comment Performing Organization Information: Site ID: GUSTABO Name: [facility] Address: [address] [place], [place] [address] Director: Leny Pulido Performing Organization Address [facility] [place] [address] * C-reactive protein (04/10/2018 12:47 PM CDT) CRP 19.0 (H) <8.0 mg/L [employer] [place] Specimen Blood Narrative Performed At FASTING:NO QUEST FASTING: NO Resulting Agency Comment Performing Organization Information: Site ID: GUSTABO Name: [facility] Address: [address] [place], [place] [id number] Director: Leny Pulido Performing Organization Address [facility] [place] [address] * Mammo Screening w Cad Bilateral (04/09/2018 4:05 PM CDT) Narrative Performed At Performing Organization Address [facility] [place] Phone Number EXTERNAL LAB NON-INTERFACED * MRI Brain Wo Contrast (03/22/2018 3:49 PM CDT) Narrative Performed At Performing Organization Address [facility] [place] Phone Number EXTERNAL LAB NON-INTERFACED * CT Head Wo Contrast (03/19/2018 9:09 AM CDT) Narrative Performed At Performing Organization Address City/[facility] [place] Phone Number EXTERNAL LAB NON-INTERFACED * XR Thoracic Spine 2 Vw (02/12/2018 10:55 AM CDT) Narrative Performed At [facility] AP and lateral thoracic spine: Normal exam.No fractures. Performing Organization Address [facility] Phone Number [facility] [address] [place] [address] * XR Lumbar Spine Complete 4+ Vw (02/12/2018 10:50 AM CDT) Narrative Performed At [facility] Lumbar spine series with flexion-extension.No obvious fractures. Transitional L5 sacral segment. Performing Organization Address [facility] [place] Phone Number [facility] [address] [place] [address] * Total iron binding capacity (11/29/2017 12:18 PM CDT) Iron binding capacity 471 (H) 250 - 450 ug/dL [facility] Unsaturated iron binding 440 (H) 131 - 425 ug/dL [facility] capacity Iron level 31 27 - 159 ug/dL [facility] Iron saturation 7 (LL) 15 - 55 % [facility] Specimen Blood Narrative Performed At Performed at: [facility] [place] [facility] happin![address] [place], [id number] Teller Coordinator: Gage Howard MD, Phone:[phone] Performing Organization Address [facility] [place] Phone Number [facility] * Microalbumin / creatinine urine ratio (11/29/2017 12:18 PM CDT) Creatinine, urine, random 95.8 Not Estab. mg/dL [facility] Microalbumin, urine 7.0 Not Estab. ug/mL [facility] Microalbumin/creatinine 7.3 0.0 - 30.0 mg/g creat [facility] ratio Specimen Urine Narrative Performed At Performed at: [facility] [place] [facility] [place] [place], [id number] Teller Coordinator: Gage Howard MD, Phone:[phone] Performing Organization Address [facility] Phone Number [facility] * Vitamin D 25 hydroxy level (11/29/2017 12:18 PM CDT) Vitamin D, 25-hydroxy 17.2 (L) 30.0 - 100.0 ng/mL [facility] Comment: Vitamin D deficiency has been defined by the [place] of Medicine and an Endocrine Society practice guideline as a level of serum 25-OH vitamin D less than 20 ng/mL (1,2). The Endocrine Society went on to further define vitamin D insufficiency as a level between 21 and 29 ng/mL (2). 1. IOM ([place] of Medicine). 2010. Dietary reference intakes for calcium and D. [place]: The National Academies Press. 2. Silvana MF, Eduardo CHAHAL, Abbie MENDEZ, et al. Evaluation, treatment, and prevention of vitamin D deficiency: an Endocrine Society clinical practice guideline. JCEM. 2010; 96(7):1911-30. Specimen Blood Narrative Performed At Performed at:01 - [facility] [place] [facility] [address] [place], [id number] Teller Coordinator: Gage Howard MD, Phone:[phone] Performing Organization Address City/State/Zipcode Phone Number [facility] [...] [facility] Specimen Blood Narrative Performed At Performed at:[address] [place], [place] [id number] Teller Coordinator: Gage Howard MD, Phone:[phone] Performing Organization Address [facility] [place] Phone Number [facility] * Thyroid stimulating hormone (11/29/2017 12:18 PM CDT) TSH 3.650 0.450 - 4.500 uIU/mL [facility] Specimen Blood Narrative Performed At Performed at:[address] [place], [place] [id number] Teller Coordinator: Gage Howard MD, Phone:[phone] Performing Organization Address [facility] [place] Phone Number [facility] * T4, free (11/29/2017 12:18 PM CDT) T4, free 1.09 0.82 - 1.77 ng/dL [facility] Narrative Performed At Performed at:[address] [place], [place] [id number] Teller Coordinator: Gage Howard MD, Phone:[phone] Performing Organization Address [facility] [place] Phone Number [facility] * Hemoglobin A1c (11/29/2017 12:18 PM CDT) Hemoglobin A1C 5.6 4.8 - 5.6 % [facility] Comment: Pre-diabetes: 5.7 - 6.4 Diabetes: >6.4 Glycemic control for adults with diabetes: <7.0 Specimen Blood Narrative Performed At Performed at:[address] [place], [place] [id number] Teller Coordinator: Gage Howard MD, Phone:[phone] Performing Organization Address [facility] [place] Phone Number [facility] * Ferritin level (11/29/2017 12:18 PM CDT) Ferritin level 9 (L) 15 - 150 ng/mL [facility] Specimen Blood Narrative Performed At [facility] [place], [id number] Teller Coordinator: Gage Howard MD, Phone:[phone] Performing Organization Address [facility] [place] Phone Number [facility] * Lipid panel (11/29/2017 [...] Narrative Performed At Performed at:01 - [id number] Teller Coordinator: Gage Howard MD, Phone:[phone] Performing Organization Address [facility] [place] Phone Number [facility] * Comprehensive metabolic panel (11/29/2017 12:18 PM CDT) Glucose 90 65 - 99 mg/dL [facility] BUN, whole blood 11 6 - 24 mg/dL [facility] Creatinine 0.57 0.57 - 1.00 mg/dL [facility] EGFR Non-Afr. Jordanian 116 >59 mL/min/1.73 [facility] EGFR 134 >59 [...] Narrative Performed At Performed at: - [facility] [place] [facility] [address] [facility], [id number] Teller Coordinator: Gage Howard MD, Phone:[phone] Performing Organization Address City/State/Zipcode Phone Number [facility] after 06/24/2017 Insurance Payer Benefit Subscriber ID Type Phone Address Plan / Group [facility] xxxxxxxxx HMO/PPO THCARE CHOICE/CHO ICE + Advance Directives Patient has advance care planning documents on file. For more information, shasta peguero contact: Forest Dixon [address] [place] [address]
--- NOTE | 2018-06-25 10:53 | Operative Report ---
DATE OF PROCEDURE: June 25, 2018 PREOPERATIVE DIAGNOSES 1. A 43-year-old female, 3, para 2, with frequent, heavy, long periods leading to anemia, possible adenomyosis. 2. Mother has ovarian cancer. Patient wants bilateral salpingo-oophorectomy. POSTOPERATIVE DIAGNOSES 1. A 43-year-old female, 3, para 2, with frequent, heavy, long periods leading to anemia, possible adenomyosis. 2. Mother has ovarian cancer. Patient wants bilateral salpingo-oophorectomy. 3. Pelvic adhesions. PROCEDURES DONE 1. Examination under anesthesia. 2. Total abdominal hysterectomy and bilateral salpingo-oophorectomy. 3. Pelvic adhesiolysis. ASSISTANT PRINTER FLOOR COVERING: Dr. Call ANESTHESIA: General. FINDINGS AT THE TIME SURGERY: Uterus is enlarged, about 12 weeks' size, possible adenomyosis, boggy. Both ovaries looked normal. Both tubes look normal. There are flimsy adhesions around the uterus, tubes and pelvic sidewall that were removed. No endometriosis. ESTIMATED BLOOD LOSS: Around 200 mL. URINE: Clear in the Vargas bag. CONDITION: The patient is stable in recovery. COUNTS: Instrument and swab counts are correct. PROCEDURE IN DETAIL: The patient was brought to the operating room and put in the supine position, and general anesthesia was given without any problems. After adequate anesthesia, she was examined under anesthesia. The cervix looks normal. The uterus is retroverted, boggy, enlarged to 12 weeks' size. No adnexal mass is felt. Then she was prepped and draped in the routine fashion, and we proceeded with the surgery. A Vargas catheter in the bladder was draining clear urine. She had 1 previous and has a low transverse Pfannenstiel scar. I made the incision over the same scar and taken down to the fascia. The fascia was opened in a transverse fashion. The rectus muscles were longitudinally. I identified the parietal peritoneum and entered the abdominal cavity without any problems. Then I placed an O'Drmlhi-U-Milrkasa retractor in the incision. I placed in Trendelenburg position, packed the bowels up and put in the upper blade and then the lower blade. The uterus was held with a [place] clamp. We explored the pelvis. Both ovaries and tubes looked normal. There were some flimsy adhesions between the tubes, the uterus and the pelvic sidewall. These were . The patient's mother has had ovarian cancer, and she is adamant and wants both the ovaries and tubes removed. We proceeded with surgery. We clamped the round ligaments on either side, cauterized and cut. Hemostasis was good. Then the infundibulopelvic ligaments were isolated, clamped close to the ovary with the LigaSure, cauterized twice and then cut. Had to take 2 bites on either side, one for the broad ligament and one for the infundibulopelvic ligament. Then I dissected the bladder flap at the peritoneum and dissected down the bladder. It went down very easily, no problems. Hemostasis was good. Posteriorly, the peritoneum was opened and pushed down. Then we proceeded to the uterine vessels. After skeletonizing the vessels, we clamped at the level of the internal os with a LigaSure, cauterized twice and then cut. The was done on both sides. Then the LigaSure was put to the side and used the clamps. The bladder went down very well. The ureters were far away. The cardinal ligaments on either side were cut and clamped with a straight Ramirez clamp, cut towards the uterus, and suture ligated with a transfixation suture using #1 Vicryl. Had to take 2 bites. Then the uterosacral ligaments on either side were clamped close to the uterus, cut towards the uterus and suture ligatured using 1-0 Vicryl. Suture tied snug and held long with a hemostat. We were at the angle of the vagina. Making sure the bladder is down and posteriorly the bowel is away and the ureters are away, we placed right-angle clamps on either side on the angle of the vagina and cut with Elyssa scissors. Then the posterior vaginal wall was cut and from the uterus, tubes and ovaries and sent for pathology separate. Then we placed angle stitches, 1 on either side using #1 Vicryl with transfixation suture. The suture was tied snug and held long with a hemostat. The vaginal wall was closed with figure-of-8 sutures using #1 Vicryl, 3 of them. All of the sutures were tied snug and cut short. After anchoring the stumps and uterosacral ligaments into the vaginal cuff, all the sutures were tied snug and cut short, the angle stitches. Hemostasis was satisfactory. The urine was clear in the Vargas bag. The ureters looked far away and normal. We irrigated the pelvis, and the fluid was clear. Then injected local Exparel into the vaginal cuff, about 5 to 6 mL. The O'Zopvvr-V-Dtsnfvtu retractor was removed. All the swabs were removed. Instrument and swab counts were correct. We then closed the abdominal wall in layers. Before closing, we injected Exparel local anesthesia into the fascia and abdominal muscles and into the skin around the incision. The fascia was closed using #1 Vicryl starting at the corners and ended in the midline. The fascia was closed with #1 Vicryl using 2 sutures, starting at the corners and ending in the midline. Irrigated again. Again, subcutaneous tissue was approximated with 2-0 Vicryl with continuous stitches. The skin was approximated with 4-0 Vicryl using subcuticular stitches. The patient tolerated the procedure well. There were no complications. Estimated blood loss around 200 mL. Urine was clear in the Vargas bag. The patient was stable in the recovery room. Instrument and swab counts were correct. Job#: [id number]
[2018-06-25 13:33] VITALS: BP 128/80
[2018-06-25] MEDS ORDERED: PROMETHAZINE 25MG/ NS 50ML (IV) IV PRN (13:45)
[2018-06-25] MEDS: DEXTROSE 5%/LACTATED RINGERS 1,000 ML IV SCH ×2 (14:45→23:51)
[2018-06-25 14:50] VITALS: BP 128/80
[2018-06-25 16:00] VITALS: BP 117/76
[2018-06-25] MEDS ORDERED: PROPOFOL IV EMULSION 10 MG/ML 20 ML VIAL ONE (17:42)
[2018-06-25] MEDS ORDERED: SEVOFLURANE INHAL SOLN 250 ML PEN BTL ONE (17:42)
[2018-06-25] MEDS ORDERED: ACETAMINOPHEN 1000 MG/100 ML IV ONE (17:42)
[2018-06-25] MEDS ORDERED: ROCURONIUM BROMIDE 10 MG/ML 5ML VIAL ONE (17:42)
[2018-06-25] MEDS ORDERED: LIDOCAINE HCL 2% LOCAL INJ 5 ML SDV VIAL INJ ONE (17:42)
[2018-06-25] MEDS ORDERED: DEXAMETHASONE SOD PHOS INJ 4 MG/ML VIAL ONE (17:42)
[2018-06-25] MEDS ORDERED: ONDANSETRON HCL INJ 2 MG/ML VIAL ONE (17:42)
[2018-06-25] MEDS: CEFOXITIN SODIUM 2 G/VIAL IV SCH ×2 (18:10→23:51)
[2018-06-25] MEDS ORDERED: FENTANYL CITRATE/PF 100MCG/2 ML INJ ONE (19:22)
[2018-06-25] MEDS ORDERED: MORPHINE SULFATE INJ 10 MG/ML ONE (19:22)
[2018-06-25] MEDS ORDERED: MIDAZOLAM HCL 2 MG/2 ML VIAL ONE (19:22)
[2018-06-25 20:00] VITALS: BP_SYST 106; BP_SYST 134; BP_DIAS 6; BP_DIAS 60
[2018-06-25] MEDS: HYDROCHLOROTHIAZIDE 25 MG TAB PO SCH (21:00)
[2018-06-25] MEDS: LISINOPRIL 20 MG TAB PO SCH (21:00)
[2018-06-25 21:30] VITALS: BP 97/53
[2018-06-26] VITALS: BP 96/58
[2018-06-26] MEDS: HYDROMORPHONE 0.2MG/ML-SOD CHL 30ML PCA SYRINGE IV PRN (00:59)
[2018-06-26 04:00] VITALS: BP 103/61
[2018-06-26] MEDS ORDERED: SODIUM CHLORIDE 0.9% 50ML 50 ML ONE (05:35)
[2018-06-26 06:00] LABS: BASOPHILS % 0.2 % (0.0-1.0); EOSINOPHILS % 0.2 % (0.0-6.0); HEMATOCRIT 30.5 % (34.2-44.1); HEMOGLOBIN 10.1 g/dL (12.0-16.0); LYMPHOCYTES # (AUTO) 1.3 (1.0-3.2); LYMPHOCYTES % 13.2 % (18.0-39.1); MEAN CORPUSCULAR HEMOGLOBIN 29.4 pg (28-32); MEAN CORPUSCULAR HGB CONC 33.1 g/dL (31-35); MEAN CORPUSCULAR VOLUME 88.9 fL (81-99); MONOCYTES # (AUTO) 0.8 (0.2-0.8); MONOCYTES % 8.2 % (4.4-11.3); NEUTROPHILS # (AUTO) 7.9 (2.1-6.9); NEUTROPHILS % 77.8 % (38.7-80.0); PLATELET COUNT 320 x10e3/uL (140-360); RED BLOOD COUNT 3.43 x10e6/uL (3.6-5.1); RED CELL DISTRIBUTION WIDTH 15.3 % (11.7-14.4)
[2018-06-26] MEDS: CEFOXITIN SODIUM 2 G/VIAL IV SCH (06:15)
[2018-06-26 06:19] LABS: BLOOD UREA NITROGEN 8 mg/dL (7-26); BUN/CREATININE RATIO 12 (6-25); CALCIUM 8.8 mg/dL (8.4-10.2); CARBON DIOXIDE 25 mmol/L (22-29); CHLORIDE 105 mmol/L (98-107); CREATININE, SERUM 0.69 mg/dL (0.57-1.11); EST GLOMERULAR FILTRATION RATE > 60 ML/MIN (60-); GLUCOSE 129 mg/dL (74-118); SODIUM 139 mmol/L (136-145)
[2018-06-26 08:06] VITALS: BP 95/63
[2018-06-26 08:20] VITALS: BP 104/60
[2018-06-26] MEDS: HYDROCHLOROTHIAZIDE 25 MG TAB PO SCH (09:00)
[2018-06-26] MEDS: LISINOPRIL 20 MG TAB PO SCH (09:00)
[2018-06-26] MEDS ORDERED: HYDROCODONE/APAP 5MG-325MG TAB PO PRN ×2 (10:15)
[2018-06-26] MEDS ORDERED: IBUPROFEN 400 MG TAB PO PRN (10:15)
[2018-06-26] MEDS ORDERED: DOCUSATE SODIUM 100 MG CAP PO SCH ×2 (10:33→17:00)
[2018-06-26] MEDS ORDERED: KETOROLAC TROMETHAMINE 30 MG/ML VIAL IV ONE (10:45)
[2018-06-26 12:02] VITALS: BP 93/62
[2018-06-26] MEDS ORDERED: VICODIN PO (15:02)
[2018-06-26] MEDS ORDERED: MOTRIN800 MG PO (15:03)
[2018-06-26] MEDS ORDERED: HEMOCYTE PLUS1 EACH PO (15:03)
[2018-06-26] MEDS ORDERED: COLACE100 MG PO (15:04)
[2018-06-26 16:00] VITALS: BP 96/53
== END 2018-06-26 15:51 | disposition home or self-care (01) ==
LOC: OR 05:56 → PACU V 10:06 → MED/SURG 10:58
PROVIDERS: ADMIT Specialist; ATTEND Specialist
DX: N92.0 Excessive and frequent menstruation with regular cycle (principal); D64.9 Anemia, unspecified; Z80.41 Family history of malignant neoplasm of ovary; N72 Inflammatory disease of cervix uteri; N80.0 Endometriosis of uterus; Q50.5 Embryonic cyst of broad ligament; J45.909 Unspecified asthma, uncomplicated; I10 Essential (primary) hypertension; E78.5 Hyperlipidemia, unspecified; K21.9 Gastro-esophageal reflux disease without esophagitis; K76.0 Fatty (change of) liver, not elsewhere classified; N73.6 Female pelvic peritoneal adhesions (postinfective); Z01.810 Encounter for preprocedural cardiovascular examination; Z01.812 Encounter for preprocedural laboratory examination; Z01.811 Encounter for preprocedural respiratory examination
CPT/HCPCS: 36415 ×2; 58150; 71046; 80048; 81003; 84702; 85025 ×2; 86850; 86900; 87390; 88307; 93005; C9290; G0378 ×2; G0433; G0435; J0131; J0694 ×3; J1100; J1200; J1885; J2001; J2250; J2270; J2405; J2550; J2704; J2765; J7121 ×2